=== PATIENT | male | born 1945 | race Caucasian/White ===

== ENCOUNTER 2019-07-29 00:21 | Outpatient (CLI) | payer MEDICARE, SELFPAY ==
[2019-07-29 16:41] LABS: SARS-CoV-2 RNA PCR Negative
== END 2019-07-29 00:22 | disposition home or self-care (01) ==
LOC: ANHCOVIDDT 00:22
PROVIDERS: Visit Provider Plastic Surgery
DX: Z01.812 Encounter for preprocedural laboratory examination (principal); Z20.828 Contact with and (suspected) exposure to other viral communicable diseases
CPT/HCPCS: 87635; C9803; U0003

== ENCOUNTER 2019-07-29 08:47 | Outpatient (CLI) | payer MEDICARE, SELFPAY ==
--- NOTE | 2019-07-29 08:49 | ECG_ITS ---
Measurements Intervals [place] Rate: 68 P: 3 VA: 228 QRS: 29 QRSD: 88 T: 11 QT: 379 QTc: 404 Interpretive Statements SINUS RHYTHM WITH FIRST DEGREE AV BLOCK ABNORMAL ECG Electronically Signed On 07-29-2019 9:24:52 CDT by Simon Fernández D.O.
== END 2019-07-29 08:48 | disposition home or self-care (01) ==
LOC: ANHSURGERY 08:49
PROVIDERS: PCP Family Medicine; Visit Provider Plastic Surgery
DX: Z01.818 Encounter for other preprocedural examination (principal); C43.62 Malignant melanoma of left upper limb, including shoulder; I10 Essential (primary) hypertension; I44.0 Atrioventricular block, first degree; Z11.59 Encounter for screening for other viral diseases
CPT/HCPCS: 87635; 93005; C9803; U0003

== ENCOUNTER 2019-07-31 02:01 | Day surgery (SDC) | payer MEDICARE, SELFPAY ==
[2019-07-25 13:41] VITALS: BMI 34.7
--- NOTE | 2019-07-30 15:41 | WPDANESEPPF ---
Anes - Initial Pre Proc Eval Procedure: Operation Date: 07/31/19 08:30 Proposed Procedures p Wide Excision Of Melanoma Upper Left Posterior Shoulder With [place] Lymph Node Biopsy And Possible Local Tissue Transfer - Darrell Dia MD Date/Time: 07/30/19 15:41 Surgeon: Darrell Dia MD Pre Op Diagnosis: Malignant Melanoma Upper Left Posterior Shoulder Patient Data Age: 74 Gender: M Height: 1.68 m Weight: 97.52 kg Allergies Allergy/AdvReac Type Severity Reaction Status Date / Time Penicillins Allergy Mild Rash Unverified 07/31/19 06:21 Home Medications Medication Instructions Recorded Confirmed Type amlodipine [Norvasc] 2.5 mg PO DAILY 07/25/19 07/31/19 History aspirin 81 mg PO DAILY 07/25/19 07/31/19 History atorvastatin [Lipitor] 40 mg PO HS 07/25/19 07/31/19 History carvedilol [Coreg] 25 mg PO BID 07/25/19 07/31/19 History clopidogrel [Plavix] 75 mg PO DAILY 07/25/19 07/31/19 History isosorbide mononitrate 30 mg PO DAILY 07/25/19 07/31/19 History quetiapine [Seroquel] 25 mg PO HS 07/25/19 07/31/19 History ECG: Date of Service: 07/29/19 Procedure(s): CA 12 lead EKG Accession Number(s): [id number] cc: ~ Measurements Intervals [place] Rate: 68 P: 3 AL: 228 QRS: 29 QRSD: 88 T: 11 QT: 379 QTc: 404 Interpretive Statements SINUS RHYTHM WITH FIRST DEGREE AV BLOCK ABNORMAL ECG Electronically Signed On 07-29-2019 9:24:52 CDT by Simon Fernández D.O. Dictated By: Simon Fernández DO 07/29/19 0935 Patient hx anesthesia problems: none Family hx anesthesia problems: none PMFSH Past Medical History Medical History (Updated 07/30/19 @ 15:44 by Silvestre Womack MD) Angina pectoris CAD (coronary artery disease) Cancer lt shoulder melanoma HTN (hypertension) Hypercholesterolemia Obesity Surgical History Surgical History (Updated 07/30/19 @ 15:44 by Silvestre Womack MD) History of coronary artery stent placement 2009 Hx of cardiac catheterization Social History Social History Gender identity (if verbalized by the patient): Male Anes - [facility] Final PreProcedure Day of Procedure 07/30/19 15:41 Patient weight: obese Heart: regular rate and rhythm Lungs: clear to auscultation and normal air movement Airway: Mallampati scale class II Neurological: alert and oriented Last oral intake: >/= 8 hours ASA classification: III Emergent: no Anesthetic plan: proceed Anesthesia type and monitoring: general LMA and ETT Informed Consent: The patient's anesthetic plan and its attendant risks and benefits were discussed with the patient/family/POA. Questions were solicited and answers provided to the satisfaction of the patient/family/POA.
--- NOTE | 2019-07-30 20:25 | HP_ITS ---
DATE OF SERVICE: 07/31/2019 PREOPERATIVE DIAGNOSIS: Malignant melanoma, superficial spreading, Breslow thickness of 1.45 mm. HISTORY: The patient is 74. He was referred by biopsy accompanied him. It was taken on 07/15/2019, indicating malignant melanoma, superficial spreading type with some focal spindle cell morphology. The margins are involved with melanoma in situ. There was no ulceration. Mitotic figures were 4 per sq m. There is mild lymphocytic infiltrate. The patient was advised the need for wide excision of this, which will exceed a 1 cm margin hopefully, and he will require a sentinel lymph node biopsy who is aware that there may be more than 1 and with any of this, there could be nerve injury, scarring, hematoma, infection, and other possible complications he would like to proceed. ALLERGIES: INDICATES THAT HE HAS AN ALLERGY TO PENICILLIN. HE SAYS HE ALSO HAS ALLERGY TO DC INHIBITORS. CURRENT MEDICATIONS: 1. Plavix. 2. Coreg. 3. Norvasc. 4. Isosorbide. 5. Lipitor. 6. Seroquel. PRIOR SURGERIES: Include right shoulder surgery in 2005. He has had carpal tunnel surgery on both hands around 2005. He has had a balloon angioplasty with 2 stents placed in 2009. He had a heart attack that year. 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 He also has some arthritis. FAMILY HISTORY: Interesting for significant cardiac disease in almost all of his relatives. His son has had a heart transplant. SOCIAL HISTORY: Lives in [place]. He is to [facility]. PHYSICAL EXAMINATION: GENERAL: He is cooperative informative. VITAL SIGNS: He is 5 feet 8 inches and weighs 222 pounds. HEENT EXAM: Appeared normal on the day of his visit. CHEST: Clear to auscultation. HEART: Regular rate and rhythm by palpation. ABDOMEN: Soft, nontender. EXTREMITY EXAM: Normal. SKIN: Reveals the biopsy site on the left posterior shoulder, it is healed. There is no palpable adenopathy. No other significant skin lesions. ASSESSMENT: Malignant melanoma, Breslow thickness of 1.45 mm, left posterior shoulder. PLAN: Wide excision of malignant melanoma, Breslow thickness 1.45 mm, and closure as indicated and sentinel lymph node biopsy under general anesthesia. D I MT: Wanda GAGNON
[2019-07-31] VITALS (9 sets, daily range): BP systolic 122–151; BP diastolic 60–84; PULSE 65–71; RESP 12–20; TEMP 36.6–36.8; O2SAT 98–100
[2019-07-31] MEDS: LACTATED RINGERS 1,000 ML 30 ML IV CONT ×2 (06:20→10:54)
--- NOTE | 2019-07-31 07:15 | WPDHPUPDATE1 ---
History and Physical Update Update Date/Time: 07/31/19 07:15 History and Physical has been reviewed, including an updated exam of the patient. There are NO changes in the patient's condition. Risks, benefits, and alternatives have been discussed and questions answered. Patient agrees to proceed with procedure.
--- NOTE | 2019-07-31 08:29 | PM.OP ---
Procedure Note - Brief Procedure Note - Brief Date of procedure: 07/31/19 Pre-op diagnosis: Malignant Melanoma Upper Left Posterior Shoulder Post-op diagnosis: same Procedure performed: Left axillary sentinel lymph node biopsy and 4.5 cm wide excision of melanoma Breslow thickness 1.45 mm, pt2a, from left posterior shoulder with complex repair 12 cm. Anesthesia: GETA Surgeon: Darrell Dia MD Freight Trucker: Norma Estimated blood loss (mL): 20 Drains: No Packing: No Pathology: yes (Max Navigator count of excised nodes 201 and 722 with background 99) Complications: No immediate complications Condition: stable Disposition: PACU
[2019-07-31] MEDS: LIDO 1%/EPINEPHRINE 1:100,000 20 ML VIAL INFILTRATE (08:56)
--- NOTE | 2019-07-31 10:56 | PM.PROC ---
Procedure Note - Detailed Date of procedure: 07/31/19 Pre-op diagnosis: Malignant Melanoma Upper Left Posterior Shoulder Malignant melanoma of Breslow thickness 1.45 mm pathologic stage pt2a of the posterior left shoulder. Post-op diagnosis: same Procedure performed: 4.5 cm wide excision of malignant melanoma of the left posterior shoulder with complex repair 12 cm. Left axillary sentinel lymph node biopsy. Description of procedure: The patient underwent her nuclear medicine injection at his biopsy site early in the morning of surgery. A single left axillary lymph node was identified and marked. He was brought to the holding area and the sites were marked in the affirmative for surgical treatment.. He was taken to the operating room and placed supine on the operating table he was given general endotracheal anesthesia. The left axillary area was prepped and draped. The isotope activity was the confirmed in the left axilla. The incision was made and dissection was carried with sharp and blunt dissection through the subcutaneous tissue and into the axillary fat pad. An area of increased activity was identified and 2 separate lymph nodes were removed. The 1st had a high reading of 201 the 2nd had a high reading of 722. After removal of these the background radiation was 99. The lymph nodes were removed with sharp and blunt dissection cautery. Also utilized was a 3-0 Vicryl ligature on the larger nose. The wound was irrigated bleeding points were electrocoagulated. The deep portion of this wound was lined with a 3 by 8 sheet of Surgicel. The wound was closed in several layers with 3-0 Vicryl including the running intradermal suture. Glue was applied over that to seal was skin. The tissue was sent fresh to pathology for permanent section. The patient was then turned to his right side. The biopsy site was visualized and marked approximately 3 mm outside of the actual wound and just beyond the erythematous margins. The margin is known to be positive for melanoma in situ. A cercle was inscribed beyond that at a measured distance of 1.2 cm and the incision encompased the outside of that marking. The incision was carried through subcutaneous tissue to include the deep fascia. The specimen was sent to pathology for permanent sections. We mobilized the arm at that point to identify the most beneficial orientation of skin closure. It seemed this would work well without need of the skin flap. The wound was closed roughly transversely to his axis. The closure was done in multiple layers with 0 Vicryl and running 5 0 nylon. A Tegaderm dressing was applied to that site. He is discharge instructions in wound care and follow-up. He has a prescription for hydrocodone APAP # 12. Surgeon: Darrell Dia MD
== END 2019-07-31 12:50 | disposition home or self-care (01) ==
PROVIDERS: PCP Family Medicine; Visit Provider Plastic Surgery
PROC: (CPT 11606; principal; 2019-07-31 08:30)
DX: C43.62 Malignant melanoma of left upper limb, including shoulder (principal); I25.10 Atherosclerotic heart disease of native coronary artery without angina pectoris; I10 Essential (primary) hypertension; E78.00 Pure hypercholesterolemia, unspecified; E66.9 Obesity, unspecified; Z68.35 Body mass index [BMI] 35.0-35.9, adult; Z79.82 Long term (current) use of aspirin; Z79.02 Long term (current) use of antithrombotics/antiplatelets
CPT/HCPCS: 11606; 13121; 13122; 38525; 78195; 88305; 88307; 88342; A9270; A9520; C1713; J1100; J2250; J2405; J2704; J3010; J7120

== ENCOUNTER 2019-07-31 06:42 | Outpatient (CLI) | payer MEDICARE, SELFPAY ==
--- NOTE | ~2019-07-31 | NM_ITS ---
EXAMINATION: NM sentinel node w imaging DATE: 07/31/2019 08:19 INDICATION: Left shoulder melanoma. TECHNIQUE: 0.550 mCi Tc-99m filtered sulfur colloid was injected in two aliquots near the left should er melanoma. FINDINGS: There is a sentinel node in the left axilla. IMPRESSION: 1. [place] node in the left axilla. Reviewed, dictated and finalized at location A.
== END 2019-07-31 06:43 ==
LOC: ANHIMG 08-22 06:42
PROVIDERS: PCP Family Medicine; Visit Provider Plastic Surgery
DX: C43.62 Malignant melanoma of left upper limb, including shoulder (principal)
CPT/HCPCS: 78195; A9520